=== PATIENT | female | born 1965 | race Native Hawaiian/Other Pacific Islander ===

== ENCOUNTER 2018-04-27 11:33 | Outpatient (CLI) | payer BC | END 2018-04-27 19:57 | disposition home or self-care (01) | LOC: MAMMO 11:33 | DX: Z12.31 Encounter for screening mammogram for malignant neoplasm of breast (principal) ==

== ENCOUNTER 2020-05-17 15:33 | Outpatient (CLI) | payer BC | END 2020-05-17 23:28 | disposition home or self-care (01) | LOC: RAD 15:33 | DX: M54.2 Cervicalgia (principal); M25.512 Pain in left shoulder ==

== ENCOUNTER 2020-09-18 14:30 | Outpatient (CLI) | payer BC | END 2020-09-18 23:17 | disposition home or self-care (01) | LOC: RAD 14:30 | PROVIDERS: ATTEND Internal Medicine | DX: M54.5 Low back pain (principal) ==

== ENCOUNTER 2022-04-15 13:56 | Outpatient (CLI) | payer BC | END 2022-04-15 20:14 | disposition home or self-care (01) | LOC: MAMMO 13:56 | PROVIDERS: ATTEND Internal Medicine | DX: Z12.31 Encounter for screening mammogram for malignant neoplasm of breast (principal); Z78.0 Asymptomatic menopausal state ==